=== PATIENT | male | born 1975 | race Caucasian/White ===

== ENCOUNTER 2020-10-13 16:34 | Emergency (ER) | payer SELFPAY ==
[~2020-10-13] VITALS: Ht 172.7 cm; Wt 90.9 kg
[2020-10-13] MEDS ORDERED: IV NORMAL SALINE 1000ML BAG 1,000 ML IV ONE (17:15)
--- NOTE | 2020-10-13 17:19 | PHYS DOC ---
Past Medical History Past Medical History: No Pertinent History (FIDELINA SCHULZ DO) Past Surgical History: Other Additional Past Surgical Histo: HERNIA REPAIR, TENDON REPAIR (FIDELINA SCHULZ DO) Smoking Status: Current Every Day Smoker Alcohol Use: Occasionally (FIDELINA SCHULZ DO) General Adult EDM: Chief Complaint: DRUG ABUSE HPI: HPI: Patient is a 45 year old male who was brought here by EMS due to altered mental status. Patient admitted that he snorted some fentanyl about 2 hours ago. He then became unresponsive. He was in a parked car with his girlfriend at [employer]. His girlfriend gave him narcain and that woke him up but he was very confused so EMS was called to take him here for evaluation. Patient denies suicidal ideation, denies headache, denies any abdominal pain, no chest pain, no nausea vomiting. (FIDELINA SCHULZ DO) Review of Systems: Review of Systems: Constitutional: Denies fever or chills. [] Eyes: Denies change in visual acuity. [] HENT: Denies nasal congestion or sore throat. [] Respiratory: Denies cough or shortness of breath. [] Cardiovascular: Denies chest pain or edema. [] GI: Denies abdominal pain, nausea, vomiting, bloody stools or diarrhea. [] : Denies dysuria. [] Musculoskeletal: Denies back pain or joint pain. [] Integument: Denies rash. [] Neurologic: Denies headache, focal weakness or sensory changes. [] Endocrine: Denies polyuria or polydipsia. [] Lymphatic: Denies swollen glands. [] Psychiatric: Denies depression or anxiety. [] (FIDELINA SCHULZ DO) Heart Score: C/O Chest Pain: N/A Risk Factors: Risk Factors: DM, Current or recent (<one month) smoker, HTN, HLP, family history of CAD, obesity. Risk Scores: Score 0 - 3: 2.5% MACE over next 6 weeks - Discharge Home Score 4 - 6: 20.3% MACE over next 6 weeks - Admit for Clinical Observation Score 7 - 10: 72.7% MACE over next 6 weeks - Early Invasive Strategies (FIDELINA SCHULZ DO) C/O Chest Pain: No (ELIZABETH VALENZUELA MD) Current Medications: Current Medications Medications (Trade) Dose Ordered Sig/Aldo Start Time Stop Time Status Last Admin Dose Admin Sodium Chloride 1,000 ml @ 1,000 mls/hr 1X ONCE 10/13/20 17:15 10/13/20 18:14 (FIDELINA SCHULZ DO) Allergies: Allergies: Allergies Coded Allergies Type Severity Reaction Last Updated Verified morphine Allergy Severe 10/13/20 Yes nicotine Allergy Severe ANAPHYLAXIS 10/13/20 Yes (FIDELINA SCHULZ DO) Physical Exam: PE: Constitutional: Well developed, well nourished, no acute distress, non-toxic appearance. [] HENT: Normocephalic, atraumatic, bilateral external ears normal, oropharynx moist, no oral exudates, nose normal. [] Eyes: PERRLA, EOMI, conjunctiva normal, no discharge. [] Neck: Normal range of motion, no tenderness, supple, no stridor. [] Cardiovascular:Heart rate regular rhythm, no murmur [] Lungs & Thorax: Bilateral breath sounds clear to auscultation [] Abdomen: Bowel sounds normal, soft, no tenderness, no masses, no pulsatile masses. [] Skin: Warm, dry, no erythema, multiple skin lesions on his lower extremities Back: No tenderness, no CVA tenderness. [] Extremities: No tenderness, no cyanosis, no clubbing, ROM intact, no edema. [] Neurologic: Alert and oriented X 3, normal motor function, normal sensory fu nction, no focal deficits noted. [] Psychologic: Affect normal, judgement normal, mood normal. [] (FIDELINA SCHULZ DO) Current Patient Data: Labs: Current Medications Medications (Trade) Dose Ordered Sig/Aldo Route PRN Reason Start Time Stop Time Status Last Admin Dose Admin Sodium Chloride 1,000 ml @ 1,000 mls/hr 1X ONCE IV 10/13/20 17:15 10/13/20 18:14 10/13/20 17:19 Vital Signs: Vital Signs Date Time Temp Pulse Resp B/P (MAP) Pulse Ox O2 Delivery O2 Flow Rate FiO2 10/13/20 16:39 97.6 108 18 168/107 (127) 94 Room Air 97.6 (FIDELINA SCHULZ DO) EKG: EKG: [] (FIDELINA SCHULZ DO) Radiology/Procedures: Radiology/Procedures: [] (FIDELINA SCHULZ DO) Course & Med Decision Making: Course & Med Decision Making Pertinent Labs and Imaging studies reviewed. (See chart for details) Patient is a 45-year-old male who was brought here by EMS due to altered mental status. Patient admitted of smoking fentanyl today, he became unresponsive, his girlfriend revised him with Narcan. Patient will be observed here to see how he does. Patient has been endorsed to the incoming physician at shift change Dr. Elizabeth Valenzuela at 6 PM (FIDELINA SCHULZ DO) Course & Med Decision Making Accepted patient care at shift change. Patient awake and alert, discussed will observe to make sure the Narcan has worn off. Patient did well no recurrent sedation. Patient ambulatory with a steady gait. (ELIZABETH VALENZUELA MD) Dragon Disclaimer: Dragon Disclaimer: This electronic medical record was generated, in whole or in part, using a voice recognition dictation system. (FIDELINA SCHULZ DO) Departure Departure Impression: Primary Impression: Substance abuse Disposition: 01 HOME / SELF CARE / HOMELESS Condition: STABLE Patient Instructions: Substance Abuse-Brief FIDELINA SCHULZ DO Oct 13, 2020 17:19 ELIZABETH VALENZUELA MD Oct 13, 2020 18:58
[2020-10-13 17:59] LABS: BASO % 0 % (0-3); EOS # 0.1 x10^3/uL (0.0-0.7); EOS % 1 % (0-3); HEMATOCRIT 43.9 % (39.0-53.0); HEMOGLOBIN 15.4 g/dL (13.0-17.5); LYMPH # 1.6 x10^3/uL (1.0-4.8); LYMPH % 15 % (24-48); MEAN CORPUSCULAR HEMOGLOBIN 31 pg (25-35); MEAN CORPUSCULAR HGB CONC 35 g/dL (31-37); MEAN CORPUSCULAR VOLUME 88 fL (79-100); MONO # 0.9 x10^3/uL (0.0-1.1); MONO % 8 % (0-9); NEUT # 8.4 x10^3/uL (1.8-7.7); NEUT % 77 % (31-73); PLATELET COUNT 287 x10^3/uL (140-400); RED BLOOD COUNT 4.99 x10^6/uL (4.30-5.70); RED CELL DISTRIBUTION WIDTH 13.5 % (11.5-14.5)
[2020-10-13 18:10] LABS: CREATININE 0.9 mg/dL (0.7-1.3); GFR 91.3; POTASSIUM 3.6 mmol/L (3.5-5.1)
[2020-10-13 18:16] LABS: ALBUMIN 3.8 g/dL (3.4-5.0); ALBUMIN/GLOBULIN RATIO 1.3 (1.0-1.7); TOTAL BILIRUBIN 0.5 mg/dL (0.2-1.0); TOTAL PROTEIN 6.8 g/dL (6.4-8.2)
[2020-10-13 18:27] LABS: AMPHETAMINE/METHAMPHETAMINE POS (NEG); BARBITURATES NEG (NEG); BENZODIAZEPINES NEG (NEG); CANNABINOIDS NEG (NEG); COCAINE NEG (NEG); METHADONE NEG (NEG); OPIATES NEG (NEG); PHENCYCLIDINE NEG (NEG)
[2020-10-13 18:29] VITALS: BP 169/82
== END 2020-10-13 19:15 | disposition home or self-care (01) ==
LOC: ER 16:34
DX: F19.10 Other psychoactive substance abuse, uncomplicated (principal); R41.82 Altered mental status, unspecified; F17.200 Nicotine dependence, unspecified, uncomplicated; Z88.5 Allergy status to narcotic agent; Z88.8 Allergy status to other drugs, medicaments and biological substances
CPT/HCPCS: 36415; 80053; 80307; 85025; 96360; 99285; G0480; J7030